=== PATIENT | female | born 1995 | race American Indian/Alaskan Native ===

== ENCOUNTER 2019-11-26 09:14 | Emergency (ER) | payer OTHER ==
[2019-11-26 10:05] VITALS: BP 104/60
--- NOTE | 2019-11-26 11:50 | Emergency Department Report ---
ED Fever HPI - General Chief Complaint: Fever Stated Complaint: FEVER Time Seen by Provider: 11/26/19 11:37 - History of Present Illness Initial Comments: This pleasant 23-year-old female presents the emergency department chief co mplaint of subjective fever, runny nose and cough over the past 2 days. Patient denies any sick contacts. Patient denies any recent travel. She denies any known past medical history, current medication use or known allergies to medications. She denies any associated chills, headache, dizziness, blurry vision, nausea, vomiting, diarrhea, chest pain, shortness of breath or any other associated symptoms. ED Review of Systems ROS: Stated complaint: FEVER Other details as noted in HPI Comment: All other systems reviewed and negative Constitutional: see HPI, fever. denies: chills Eyes: denies: eye pain, eye discharge, vision change ENT: denies: ear pain, throat pain Respiratory: see HPI, cough. denies: shortness of breath, wheezing Cardiovascular: denies: chest pain, palpitations Endocrine: no symptoms reported Gastrointestinal: denies: abdominal pain, nausea, diarrhea Genitourinary: denies: urgency, dysuria, discharge Musculoskeletal: denies: back pain, joint swelling, arthralgia Skin: denies: rash, lesions Neurological: denies: headache, weakness, paresthesias Psychiatric: denies: anxiety, depression Hematological/Lymphatic: denies: easy bleeding, easy bruising ED Past Medical Hx - Past Medical History Previous Medical History?: No - Surgical History Past Surgical History?: No - Social History Smoking Status: Never Smoker Substance Use Type: None - Medications Home Medications: Home Medications Medication Instructions Recorded Confirmed Last Taken Type Promethazine Dm (Nf) [Phenergan DM 5 ml PO Q6H PRN #120 11/26/19 Unknown Rx 6.25-15 mg/5 ml] ED Physical Exam - General Limitations: No Limitations General appearance: alert, in no apparent distress - Head Head exam: Present: atraumatic, normocephalic - Eye Eye exam: Present: normal appearance, PERRL, EOMI Pupils: Present: normal accommodation - ENT ENT exam: Present: normal exam, normal orophraynx, mucous membranes moist - Neck Neck exam: Present: normal inspection, full ROM. Absent: tenderness, meningismus - Respiratory Respiratory exam: Present: normal lung sounds bilaterally. Absent: respiratory distress, wheezes, rales, rhonchi, stridor, chest wall tenderness - Cardiovascular Cardiovascular Exam: Present: regular rate, normal rhythm, normal heart sounds. Absent: systolic murmur, diastolic murmur, rubs, gallop - GI/Abdominal GI/Abdominal exam: Present: soft, normal bowel sounds. Absent: distended, tenderness, guarding, rebound, rigid - Extremities Exam Extremities exam: Present: normal inspection, full ROM. Absent: tenderness, calf tenderness (Negative posterior calf tenderness, no palpable cords, negative Homans sign bilaterally) - Back Exam Back exam: Present: normal inspection, full ROM. Absent: tenderness, CVA tenderness (R), CVA tenderness (L) - Neurological Exam Neurological exam: Present: alert, oriented X3 - Psychiatric Psychiatric exam: Present: normal affect, normal mood - Skin Skin exam: Present: warm, dry, intact, normal color. Absent: rash ED Course Vital Signs 11/26/19 10:01 Temperature 97.6 F Pulse Rate 70 Respiratory 16 Rate Blood Pressure 104/60 O2 Sat by Pulse 97 Oximetry ED Medical Decision Making - Medical Decision Making Patient is nontoxic in no acute distress. She is PERC negative and low risk by Wells criteria making PE unlikely. Her exam was unremarkable. She had no nuchal rigidity and a negative Kernig and presents With No Fever Here Making acute meningitis unlikely. Patient had normal lung sounds making pneumonia unlikely. She had no rashes. Patient no abdominal tenderness or urinary symptoms making UTI or pyelonephritis unlikely. Or any other intra-abdominal pathology unlikely. Recommended supportive treatment and follow-up with her primary care doctor. Recommended travel precautions including coughing into her sleeve washing hands vigorously and self quarantine at home until her symptoms resolved. She verbalized understanding the diagnosis, treatment plan and follow-up instructions all of her questions were answered. - Differential Diagnosis URI, influenza, pneumonia Critical care attestation.: If time is entered above; I have spent that time in minutes in the direct care of this critically ill patient, excluding procedure time. ED Disposition Clinical Impression: Viral URI with cough Disposition: TO HOME OR SELFCARE Is pt being admited?: No Condition: Stable Prescriptions: Promethazine Dm (Nf) [Phenergan DM 6.25-15 mg/5 ml] 5 ml PO Q6H PRN #120 PRN Reason: Cough Referrals: PRIMARY CARE, [Primary Care Provider] - 3-5 Days [facility] [Provider Group] - 3-5 Days Forms: Work/School Release Form(ED) Time of Disposition: 11:50
== END 2019-11-26 12:27 | disposition home or self-care (01) ==
LOC: ED 09:14
DX: J06.9 Acute upper respiratory infection, unspecified (principal); B97.89 Other viral agents as the cause of diseases classified elsewhere; Z79.899 Other long term (current) drug therapy
CPT/HCPCS: 99281